=== PATIENT | male | born 1995 | race Caucasian/White ===

== ENCOUNTER 2017-11-13 08:49 | Emergency (ER) | payer OTHER ==
[2017-11-13 08:57] VITALS: BP 111/69; PULSE 66; RESP 16; TEMP 98.2
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
== END 2017-11-13 09:53 | disposition home or self-care (01) ==
LOC: EC 08:49
DX: S16.1XXA Strain of muscle, fascia and tendon at neck level, initial encounter (principal); R51 Headache; V49.49XA Driver injured in collision with other motor vehicles in traffic accident, initial encounter; Y92.69 Other specified industrial and construction area as the place of occurrence of the external cause; Y99.0 Civilian activity done for income or pay
CPT/HCPCS: 72050; 72072; 99284

== ENCOUNTER 2020-09-25 | Emergency (ER) | payer BC | END 2020-09-25 04:31 | disposition home or self-care (01) | DX: L02.612 Cutaneous abscess of left foot (principal); L03.032 Cellulitis of left toe; F17.290 Nicotine dependence, other tobacco product, uncomplicated | CPT/HCPCS: 99283 ==

== ENCOUNTER 2020-11-30 17:43 | Emergency (ER) | payer BC ==
[2020-11-30 18:35] VITALS: BP 119/61; PULSE 78; RESP 19; TEMP 98.3
--- NOTE | 2020-11-30 19:01 | XR ---
EXAMINATION TYPE: XR foot complete RT DATE OF EXAM: 11/30/2020 COMPARISON: NONE HISTORY: Pain and swelling TECHNIQUE: 3 views FINDINGS: Metatarsals are intact. I see no fracture nor dislocation. Joint spaces are normal. IMPRESSION: Negative right foot exam. No fracture.
[2020-11-30] MEDS ORDERED: ACET/COD 300 MG/30 MG STARTER PACK 6 TAB BTL PO STA (19:49)
--- NOTE | 2020-11-30 19:52 | ED ---
General Adult HPI - General Source: patient, RN notes reviewed Mode of arrival: ambulatory Limitations: no limitations <Tre Pino - Last Filed: 11/30/20 20:01> <Melba Schafer - Last Filed: 12/04/20 14:38> - General Chief complaint: Extremity Injury, Lower Stated complaint: rt foot injury Time Seen by Provider: 11/30/20 19:15 - History of Present Illness Initial comments: 25-year-old male presents emergency Department with chief complaint of right foot pain. Patient states started yesterday after he got home from work. Patient states that he noticed swelling area on his foot. Patient states he has some like this in the past with infection. Patient denies any other complaints. No fevers chills no trauma. (Tre Pino) - Related Data Previous Rx's Medication Instructions Recorded Cyclobenzaprine [Flexeril] 10 mg PO TID #20 tab 11/13/17 Ibuprofen [Motrin] 600 mg PO Q6HR PRN #40 day 11/13/17 Amoxic-Pot Clav 875-125Mg 1 tab PO Q12HR #20 tablet 09/25/20 [Augmentin 875-125] Sulfamethox-Tmp 800-160Mg [Bactrim 2 tab PO BID #40 tab 09/25/20 DS 800-160 mg] Amoxicillin/Potassium Clav 1 tab PO Q12HR #20 tab 11/30/20 [Augmentin 875-125 Tablet] Ibuprofen [Motrin] 600 mg PO Q8HR PRN #20 tab 11/30/20 Allergies Allergy/AdvReac Type Severity Reaction Status Date / Time No Known Allergies Allergy Verified 09/25/20 04:05 Review of Systems ROS Other: All systems not noted in ROS Statement are negative. <Tre Pino - Last Filed: 11/30/20 20:01> ROS Other: All systems not noted in ROS Statement are negative. <Melba Schafer - Last Filed: 12/04/20 14:38> ROS Statement: Those systems with pertinent positive or pertinent negative responses have been documented in the HPI. Past Medical History Past Medical History: No Reported History History of Any Multi-Drug Resistant Organisms: None Reported Past Surgical History: No Surgical Hx Reported Past Psychological History: No Psychological Hx Reported Smoking Status: Vaper Past Alcohol Use History: Occasional Past Drug Use History: None Reported <Tre Pino - Last Filed: 11/30/20 20:01> General Exam Limitations: no limitations General appearance: alert, in no apparent distress Head exam: Present: atraumatic, normocephalic, normal inspection Respiratory exam: Present: normal lung sounds bilaterally. Absent: respiratory distress, wheezes, rales, rhonchi, stridor Cardiovascular Exam: Present: regular rate, normal rhythm, normal heart sounds. Absent: systolic murmur, diastolic murmur, rubs, gallop, clicks Extremities exam: Present: other (Right lateral foot just proximal to the fifth digit there is erythema, tenderness palpation, nonfluctuant area) <Tre Pino - Last Filed: 11/30/20 20:01> Course Vital Signs 11/30/20 18:32 Temperature 98.3 F Pulse Rate 78 Respiratory 19 Rate Blood Pressure 119/61 O2 Sat by Pulse 98 Oximetry Medical Decision Making <Tre Pino - Last Filed: 11/30/20 20:01> <Melba Schafer - Last Filed: 12/04/20 14:38> - Medical Decision Making X-ray is negative for foreign body acute fracture patient appears to have a small infection of abscess patient will be placed in antibiotics with follow-up in 48 hours return parameters were discussed. (Tre Pino) I was available for consultation in the emergency department. The history and physical exam were done by the midlevel provider. I was consulted for this patients care. I reviewed the case with the midlevel provider and based on their presentation of the patient, I agree with the assessment, medical decision making and plan of care as documented. Chart was dictated using handsomexcutive dictation software. Attempts were made to correct any dictation errors however some typographical errors may persist. Patient was seen during a national state of emergency due to the Covid-19 pandemic. (Melba Schafer) Disposition Is patient prescribed a controlled substance at d/c from ED?: No Time of Disposition: 19:52 <Tre Pino - Last Filed: 11/30/20 20:01> <Melba Schafer - Last Filed: 12/04/20 14:38> Clinical Impression: Right foot infection Disposition: HOME SELF-CARE Condition: Stable Instructions (If sedation given, give patient instructions): Abscess (ED) Additional Instructions: Please return to the Emergency Department if symptoms worsen or any other concerns. Prescriptions: Amoxicillin/Potassium Clav [Augmentin 875-125 Tablet] 1 tab PO Q12HR #20 tab Ibuprofen [Motrin] 600 mg PO Q8HR PRN #20 tab PRN Reason: Pain Referrals: Jag Jacob MD [Primary Care Provider] - 1-2 days
== END 2020-11-30 20:12 | disposition home or self-care (01) ==
LOC: EC 17:43
DX: L08.9 Local infection of the skin and subcutaneous tissue, unspecified (principal); F17.290 Nicotine dependence, other tobacco product, uncomplicated
CPT/HCPCS: 99283

== ENCOUNTER 2020-12-29 22:07 | Emergency (ER) | payer BC ==
[2020-12-29 22:28] VITALS: BP 109/56; PULSE 66; RESP 20; TEMP 98.1
[2020-12-29] MEDS ORDERED: FLUORESCEIN STRIPS 1 MG STRIP LEFT EYE STA (23:00)
[2020-12-29] MEDS ORDERED: PROPARACAINE 0.5% OPHTH DROPS 15 ML BTL LEFT EYE STA (23:00)
[2020-12-29] MEDS ORDERED: ERYTHROMYCIN 5 MG/GM OPHTH OINT 1 GM TUBE LEFT EYE STA (23:35)
--- NOTE | 2020-12-29 23:39 | ED ---
General Adult HPI - General Chief complaint: Eye Problems Stated complaint: L eye pain Time Seen by Provider: 12/29/20 22:59 Source: patient Mode of arrival: ambulatory Limitations: no limitations - History of Present Illness Initial comments: 25-year-old male presents to the emergency room for treatment of foreign body in the left eye. Patient states he was using a saws all yesterday and got some beginning his eye. States it won't seem to come out and is irritating him. Denies visual changes. Tetanus up-to-date in the past 5 years.Patient has no other complaints at this time including shortness of breath, chest pain, abdominal pain, nausea or vomiting, headache, or visual changes. - Related Data Previous Rx's Medication Instructions Recorded Cyclobenzaprine [Flexeril] 10 mg PO TID #20 tab 11/13/17 Ibuprofen [Motrin] 600 mg PO Q6HR PRN #40 day 11/13/17 Amoxic-Pot Clav 875-125Mg 1 tab PO Q12HR #20 tablet 09/25/20 [Augmentin 875-125] Sulfamethox-Tmp 800-160Mg [Bactrim 2 tab PO BID #40 tab 09/25/20 DS 800-160 mg] Amoxicillin/Potassium Clav 1 tab PO Q12HR #20 tab 11/30/20 [Augmentin 875-125 Tablet] Ibuprofen [Motrin] 600 mg PO Q8HR PRN #20 tab 11/30/20 Erythromycin Ophth Oint [Romycin 1 applic LEFT EYE QID 7 Days #1 gm 12/29/20 Ophth Oint] Allergies Allergy/AdvReac Type Severity Reaction Status Date / Time No Known Allergies Allergy Verified 12/29/20 22:25 Review of Systems ROS Statement: Those systems with pertinent positive or pertinent negative responses have been documented in the HPI. ROS Other: All systems not noted in ROS Statement are negative. Past Medical History Past Medical History: No Reported History History of Any Multi-Drug Resistant Organisms: None Reported Past Surgical History: No Surgical Hx Reported Past Psychological History: No Psychological Hx Reported Smoking Status: Vaper Past Alcohol Use History: Rare Past Drug Use History: None Reported General Exam Limitations: no limitations General appearance: alert, in no apparent distress Head exam: Present: atraumatic Eye exam: Present: normal appearance, PERRL, EOMI, conjunctival injection (Left- sided conjunctival injection), other (Small foreign body noted at 9:00 left eye). Absent: scleral icterus ENT exam: Present: normal exam, mucous membranes moist Neck exam: Present: normal inspection, full ROM. Absent: tenderness Respiratory exam: Present: normal lung sounds bilaterally. Absent: respiratory distress, wheezes Cardiovascular Exam: Present: regular rate, normal rhythm, normal heart sounds Course Vital Signs 12/29/20 22:26 Temperature 98.1 F Pulse Rate 66 Respiratory 20 Rate Blood Pressure 109/56 O2 Sat by Pulse 98 Oximetry Medical Decision Making - Medical Decision Making The eye was numbed with proparacaine. This did alleviate his irritation. It was then removed with the catheter of an 18-gauge IV needle. I did attempt to remove the rust ring but was unsuccessful. Patient was started on erythromycin, no history of contact use. He will follow up with ophthalmology within the next couple days. He will call first thing tomorrow morning and let them know the situation. He will return here for any worsening symptoms. Disposition Clinical Impression: Corneal foreign body, Corneal rust ring of left eye Disposition: HOME SELF-CARE Condition: Good Instructions (If sedation given, give patient instructions): Eye Foreign Body (ED) Additional Instructions: Please use ointment 4 times a day for 7 days. Follow up with ophthalmology tomorrow morning by calling first thing to let them know you have a rust ring. Return to the emergency room for any worsening symptoms. Prescriptions: Erythromycin Ophth Oint [Romycin Ophth Oint] 1 applic LEFT EYE QID 7 Days #1 gm Is patient prescribed a controlled substance at d/c from ED?: No Referrals: Jag Jacob MD [Primary Care Provider] - 1-2 days Min aP MD [STAFF PHYSICIAN] - 1-2 days Time of Disposition: 23:38
== END 2020-12-29 23:55 | disposition home or self-care (01) ==
LOC: EC 22:07
DX: T15.02XA Foreign body in cornea, left eye, initial encounter (principal); F17.290 Nicotine dependence, other tobacco product, uncomplicated; W45.8XXA Other foreign body or object entering through skin, initial encounter
CPT/HCPCS: 99283

== ENCOUNTER → 2021-11-29 | Outpatient (CLI) | payer BC ==
--- NOTE | 2021-11-29 09:54 | XR ---
EXAM TYPE: LUMBAR SPINE X RAY SERIES COMPARISON: NONE HISTORY: Pain TECHNIQUE: 3 views are submitted. FINDINGS: Alignment is anatomic. The pedicles are intact. The transverse processes are intact. There is no s pondylolysis or spondylolisthesis. Schmorl's node superior endplate T12. IMPRESSION: 1. No acute process. If symptoms persist consider MRI.
== END | disposition home or self-care (01) ==
LOC: RADXRMAIN 09:30
PROVIDERS: ATTEND Internal Medicine
DX: M54.50 Low back pain, unspecified (principal)
CPT/HCPCS: 72100

== ENCOUNTER → 2021-12-23 | Outpatient (CLI) | payer BC ==
--- NOTE | 2021-12-23 09:20 | MR ---
EXAMINATION TYPE: MR lumbar spine wo con DATE OF EXAM: 12/23/2021 COMPARISON: Lumbar spine x-ray November 29, 2021 HISTORY: Low back pain into buttocks TECHNIQUE: Multiplanar, multisequence imaging of the lumbar spine is performed without IV contrast. FINDINGS: Sagittal images of the lumbar spine show vertebral body heights and alignment to appear sat isfactory. The intervertebral discs demonstrate normal heights and hydration. The conus medullaris i s normal in position and signal ending superior L1 level. The bone marrow signal intensity is within normal limits. Axial images show mild facet arthropathy in lower lumbar levels. Spinal canal is preserved. Bilatera l neural foramina are patent at all lumbar levels. Paraspinal muscle bulk is maintained. IMPRESSION: Mild facet arthropathy lower lumbar spine. No significant disc herniation.
== END | disposition home or self-care (01) ==
LOC: RADMRIMAIN 07:15
PROVIDERS: ATTEND Internal Medicine
DX: M47.896 Other spondylosis, lumbar region (principal)
CPT/HCPCS: 72148

== ENCOUNTER 2024-10-14 08:42 | Emergency (ER) | payer BC, OTHER ==
[2024-10-14 08:44] VITALS: RESP 18
--- NOTE | 2024-10-14 09:05 | ED ---
ENT HPI - General Chief complaint: ENT Stated complaint: Left ear pain Time Seen by Provider: 10/14/24 08:46 Source: patient, RN notes reviewed Mode of arrival: ambulatory Limitations: no limitations - History of Present Illness Initial comments: 29-year-old male presents emergency department chief complaint of left ear issues. Patient states that it seems to plugged up frequently. Patient states that difficulty hearing at times. Patient states he feels like something stuck in his ear like a piece of hair. Patient denies any fevers or chills does admit to mild nasal congestion. - Related Data Previous Rx's Medication Instructions Recorded Cyclobenzaprine [Flexeril] 10 mg PO TID #20 tab 11/13/17 Ibuprofen [Motrin] 600 mg PO Q6HR PRN #40 day 11/13/17 Amoxic-Pot Clav 875-125Mg 1 tab PO Q12HR #20 tablet 09/25/20 [Augmentin 875-125] Sulfamethox-Tmp 800-160Mg [Bactrim 2 tab PO BID #40 tab 09/25/20 DS 800-160 mg] Amoxicillin/Potassium Clav 1 tab PO Q12HR #20 tab 11/30/20 [Augmentin 875-125 Tablet] Ibuprofen [Motrin] 600 mg PO Q8HR PRN #20 tab 11/30/20 Erythromycin Ophth Oint [Romycin 1 applic LEFT EYE QID 7 Days #1 gm 12/29/20 Ophth Oint] Fluticasone Nasal [place] [Flonase 2 spr EA NOSTRIL DAILY #16 gm 10/14/24 Nasal [place]] Pseudoephedrine 12Hr [Sudafed 12Hr] 120 mg PO Q12H #20 tab 10/14/24 Allergies Allergy/AdvReac Type Severity Reaction Status Date / Time No Known Allergies Allergy Verified 10/14/24 08:44 Review of Systems ROS Statement: Those systems with pertinent positive or pertinent negative responses have been documented in the HPI. ROS Other: All systems not noted in ROS Statement are negative. Past Medical History Past Medical History: No Reported History History of Any Multi-Drug Resistant Organisms: None Reported Past Surgical History: No Surgical Hx Reported Past Psychological History: No Psychological Hx Reported Smoking Status: Vaper Past Alcohol Use History: Rare Past Drug Use History: None Reported General Exam Limitations: no limitations General appearance: alert, in no apparent distress Head exam: Present: atraumatic, normocephalic, normal inspection Eye exam: Present: normal appearance, PERRL, EOMI. Absent: scleral icterus, conjunctival injection, periorbital swelling ENT exam: Present: normal oropharynx, mucous membranes moist, normal external ear exam. Absent: normal exam, TM's normal bilaterally (Noted on the left no erythema, small hair against the eardrum noted) Neck exam: Present: normal inspection, full ROM. Absent: tenderness, meningismus, lymphadenopathy Respiratory exam: Present: normal lung sounds bilaterally. Absent: respiratory distress, wheezes, rales, rhonchi, stridor Cardiovascular Exam: Present: regular rate, normal rhythm, normal heart sounds. Absent: systolic murmur, diastolic murmur, rubs, gallop, clicks Course Vital Signs 10/14/24 08:43 Temperature 98 F Pulse Rate 62 Respiratory 18 Rate Blood Pressure 142/78 O2 Sat by Pulse 99 Oximetry Procedures - Foreign Body Removal Ear Location: ear canal (L) Foreign Body Suspected: other Foreign Body Removed: yes Foreign Body Removal Technique: irrigation Tympanic Membrane Intact: Yes Patient Tolerated Procedure: well, no complications Complications: none Medical Decision Making - Medical Decision Making Was pt. sent in by a medical professional or institution (, PA, PULL SOCKET ASSEMBLER, urgent care, hospital, or long term...) When possible be specific @ -No Did you speak to anyone other than the patient for history (EMS, parent, family, police, friend...)? What history was obtained from this source @ -No Did you review nursing and triage notes (agree or disagree)? Why? @ -I reviewed and agree with nursing and triage notes Were old charts reviewed (outside hosp., previous admission, EMS record, old EKG, old radiological studies, urgent care reports/EKG's, long term records)? Report findings @ -No old charts were reviewed Differential Diagnosis (chest pain, altered mental status, abdominal pain women, abdominal pain men, vaginal bleeding, weakness, fever, dyspnea, syncope, headache, dizziness, GI bleed, back pain, seizure, CVA, palpatations, mental health, musculoskeletal)? @ -Eustachian tube dysfunction, otitis externa, foreign body ear EKG interpreted by me (3pts min.). @ -none X-rays interpreted by me (1pt min.). @ -None done CT interpreted by me (1pt min.). @ -None done U/S interpreted by me (1pt. min.). @ -None done What testing was considered but not performed or refused? (CT, X-rays, U/S, labs)? Why? @ -None What meds were considered but not given or refused? Why? @ -None Did you discuss the management of the patient with other professionals (professionals i.e. DrDae, PA, PULL SOCKET ASSEMBLER, lab, RT, psych nurse, social science analyst, retort feeder ground bone, teacher, control systems drafting officer, lining caser)? Give summary @ -No Was smoking cessation discussed for >3mins.? @ -No Was critical care preformed (if so, how long)? @ -No Were there social determinants of health that impacted care today? How? (Homelessness, low income, unemployed, alcoholism, drug addiction, transportation, low edu. Level, literacy, decrease access to med. care, [place] [facility], rehab)? @ -No Was there de-escalation of care discussed even if they declined (Discuss DNR or withdrawal of care, Hospice)? DNR status @ -No What co-morbidities impacted this encounter? (DM, HTN, Smoking, COPD, CAD, Cancer, CVA, ARF, Chemo, Hep., AIDS, mental health diagnosis, sleep apnea, morbid obesity)? @ -None Was patient admitted / discharged? Hospital course, mention meds given and route, prescriptions, significant lab abnormalities, going to OR and other pertinent info. @ -Discharge patient has eustachian tube dysfunction mild fluid noted, no erythema no signs of infection patient had foreign body removed. Return parameters cussed. Undiagnosed new problem with uncertain prognosis? @ -No Drug Therapy requiring intensive monitoring for toxicity (Heparin, Nitro, Insulin, Cardizem)? @ -No Were any procedures done? @ -No Diagnosis/symptom? @ -Eustachian dysfunction foreign body left ear Acute, or Chronic, or Acute on Chronic? @ -Acute Uncomplicated (without systemic symptoms) or Complicated (systemic symptoms)? @ -Uncomplicated Side effects of treatment? @ -No Exacerbation, Progression, or Severe Exacerbation? @ -No Poses a threat to life or bodily function? How? (Chest pain, [place], [place], pneumonia, PE, COPD, DKA, ARF, appy, cholecystitis, CVA, Diverticulitis, Homicidal, Suicidal, threat to staff... and all critical care pts) @ -No Disposition Clinical Impression: Eustachian tube dysfunction, FB ear Disposition: HOME SELF-CARE Condition: Stable Instructions (If sedation given, give patient instructions): Earache (ED) Additional Instructions: Please return to the Emergency Department if symptoms worsen or any other concerns. Prescriptions: Fluticasone Nasal [place] [Flonase Nasal [place]] 2 spr EA NOSTRIL DAILY #16 gm Pseudoephedrine 12Hr [Sudafed 12Hr] 120 mg PO Q12H #20 tab Is patient prescribed a controlled substance at d/c from ED?: No Referrals: None,Stated [Primary Care Provider] - 1-2 days Forms: Area PCPs Time of Disposition: 09:05
[2024-10-14 09:27] VITALS: BP 103/65; PULSE 76; TEMP 98.1
== END 2024-10-14 09:21 | disposition home or self-care (01) ==
LOC: EC 08:42
DX: H69.92 Unspecified Eustachian tube disorder, left ear (principal); T16.2XXA Foreign body in left ear, initial encounter; F17.290 Nicotine dependence, other tobacco product, uncomplicated; W44.9XXA Unspecified foreign body entering into or through a natural orifice, initial encounter
CPT/HCPCS: 69200; 99282